=== PATIENT | female | born 1980 | race Caucasian/White ===

== ENCOUNTER 2016-05-24 07:32 | Day surgery (SDC) | payer OTHER ==
[2016-05-24 08:05] VITALS: BMI 23.0
[2016-05-24 08:38] LABS: BASOPHIL 0.7 % (0-2.0); EOSINOPHIL 2.5 % (0-4.5); MCH 30.3 pg (25.7-33.7); MCHC 33.4 g/dl (32.0-36.0); MEAN CELL VOLUME 90.9 fl (80-96); MEAN PLT VOLUME 8.6 fl (7.5-11.1); NEUTROPHILS 54.1 % (42.8-82.8); PLATELET COUNT 255 K/MM3 (134-434); RDW 13.5 % (11.6-15.6)
[2016-05-24 08:39] LABS: URINE APPEARANCE SLCLOUDY; URINE BILIRUBIN NEGATIVE (NEGATIVE); URINE BLOOD 2+ (NEGATIVE); URINE COLOR LTYELLOW; URINE GLUCOSE (UA) NEGATIVE (NEGATIVE); URINE KETONE NEGATIVE (NEGATIVE); URINE LEUK ESTERASE NEGATIVE (NEGATIVE); URINE NITRITE NEGATIVE (NEGATIVE); URINE PROTEIN NEGATIVE (NEGATIVE); URINE UROBILINOGEN NEGATIVE E.U./dl (0.2-1.0)
[2016-05-24 08:43] LABS: CALCIUM OXALATE CRYSTALS RARE /hpf (NONE SEEN); URINE HYALINE CAST 1 /lpf; URINE MUCUS RARE; URINE RBC 6 /hpf (0-3); URINE WBC 1 /hpf (3-5)
[2016-05-24] MEDS ORDERED: morphine CARPU-JECT 4 MG/1 ML DISP.SYRIN IVPUSH ONE (08:58)
[2016-05-24] MEDS ORDERED: SODIUM CHLORIDE 1,000 ML IV ONE (08:58)
--- NOTE | 2016-05-24 08:58 | PDOC ---
History of Present Illness <Kyree Coronado - Last Filed: 05/24/16 09:13> - General History Source: Patient Exam Limitations: No Limitations - History of Present Illness Initial Comments: 05/24/16 09:18 The patient is a 35-year-old woman with past medical history of who presents to the emergency department ia for further evaluation of abdominal pain. Her pain started approximately 5 days ago. No trauma/new foods/sick contacts. Her pain started as a gradual onset, located on the right lower quadrant, non-radiating, which was initially intermittent (lasting approximately 30 minutes), then subsiding for the past 5 days, but has now remained constant since last night ( with a reported 7/10 in intensity), before eating dinner. She has been evaluated by General Surgeon, Dr. Micheal Guthrie, and states she has a known right inguinal hernia. She has not yet had a bowel movements and states she feels swollen on the affected region. She reports associated symptoms of nausea, fever and chills but no vomiting. Her last menstrual period was on 05/04/2016. She denies diaphoresis, generalized weakness. She denies chest pain, shortness of breath, cough She denies nausea, diarrhea, dysuria, hematuria, urinary frequency and urgency, flank pain, vaginal discharge/vaginal bleeding Allergies: No Known Drug Allergies. No Known Food Allergies. Past Surgical History: Cataracts. Social History: Retired. She denies tobacco, ETOH and recreational drug use. Primary Care Physician: N/A <Lulu Paulino - Last Filed: 05/24/16 11:03> - General Stated Complaint: ABD PAIN Time Seen by Provider: 05/24/16 07:55 Past History - Psycho/Social/Smoking Cessation Hx Suicidal Ideation: No Smoking History: Never smoked Information on smoking cessation initiated: No <Kyree Coronado - Last Filed: 05/24/16 09:13> <Lulu Paulino - Last Filed: 05/24/16 11:03> - Past Medical History Allergies/Adverse Reactions: Allergies Allergy/AdvReac Type Severity Reaction Status Date / Time No Known Allergies Allergy Verified 05/24/16 08:05 Review of Systems - Review of Systems Constitutional: No: Chills, Fever Cardiac (ROS): No: Chest Pain ABD/GI: Yes: Constipated, Nausea. No: Vomiting : No: Burning, Hematuria All Other Systems: Reviewed and Negative <CliffKyree - Last Filed: 05/24/16 09:13> *Physical Exam - Vital Signs Last Vital Signs Temp Pulse Resp BP Pulse Ox 97.2 F L 77 18 106/47 100 05/24/16 08:00 05/24/16 08:00 05/24/16 08:00 05/24/16 08:00 05/24/16 08:00 <Kyree Coronado - Last Filed: 05/24/16 09:13> - Vital Signs Last Vital Signs Temp Pulse Resp BP Pulse Ox 97.2 F L 77 18 106/47 100 05/24/16 08:00 05/24/16 08:00 05/24/16 08:00 05/24/16 08:00 05/24/16 08:00 - Physical Exam Comments: 05/24/16 09:18 GENERAL: The patient is awake, alert, and fully oriented, in no acute distress. HEAD: Normal with no signs of trauma. EYES: Pupils equal, round and reactive to light, extraocular movements intact, sclera anicteric, conjunctiva clear with no pallor. ENT: Ears normal, nares patent, oropharynx clear without exudates. Moist mucous membranes. NECK: Normal range of motion, supple without lymphadenopathy, JVD, or masses. LUNGS: Breath sounds equal, clear to auscultation bilaterally. No wheeze/ crackles. HEART: Regular rate and rhythm, normal S1 and S2 without murmur or rub. ABDOMEN: Soft. There is some guarding beginning in the left lower abdomen with some rebound. There is also some right lower quadrant tenderness with some guarding, with exquisite tenderness at the right inguinal region where there is a palpable hernia. It is manually reducible but sponstenoustly reoccurs. No noted inguinal lymphadenopathy or rash. EXTREMITIES: Normal range of motion, no edema. No clubbing or cyanosis. No cords, erythema, or tenderness. NEUROLOGICAL: Cranial nerves II through XII grossly intact. Normal speech. PSYCH: Normal mood, normal affect. SKIN: Warm, Dry, normal turgor, no rashes or lesions noted. <Lulu Paulino - Last Filed: 05/24/16 11:03> ED Treatment Course - LABORATORY CBC & Chemistry Diagram: 05/24/16 08:20 05/24/16 08:20 - ADDITIONAL ORDERS Additional order review: Laboratory Results 05/24/16 08:20 Urine Color Ltyellow Urine Appearance Slcloudy Urine pH 6.0 Ur Specific Silver 1.016 Urine Protein Negative Urine Glucose (UA) Negative Urine Ketones Negative Urine Blood 2+ H Urine Nitrite Negative Urine Bilirubin Negative Urine Urobilinogen Negative Ur Leukocyte Esterase Negative Urine RBC 6 Urine WBC 1 Ur Epithelial Cells Rare Calcium Oxalate Crystal Rare Amorphous Urates Few Hyaline Casts 1 Urine Mucus Rare Urine HCG, Qual Negative 05/24/16 08:20 RBC 4.05 MCV 90.9 MCHC 33.4 RDW 13.5 MPV 8.6 Neutrophils % 54.1 Lymphocytes % 34.8 Monocytes % 7.9 Eosinophils % 2.5 Basophils % 0.7 <Kyree Coronado - Last Filed: 05/24/16 09:13> - LABORATORY CBC & Chemistry Diagram: 05/24/16 08:20 05/24/16 08:20 - ADDITIONAL ORDERS Additional order review: Laboratory Results 05/24/16 05/24/16 05/24/16 08:20 08:20 08:20 INR 1.10 Sodium 141 Potassium 3.6 Chloride 105 Carbon Dioxide 28 Anion Gap 8 BUN 11 Creatinine 0.5 L Creat Clearance w eGFR > 60 Random Glucose 88 Calcium 8.9 Total Bilirubin 0.4 AST 23 ALT 36 Alkaline Phosphatase 64 Total Protein 7.2 Albumin 3.9 Urine Color Ltyellow Urine Appearance Slcloudy Urine pH 6.0 Ur Specific Silver 1.016 Urine Protein Negative Urine Glucose (UA) Negative Urine Ketones Negative Urine Blood 2+ H Urine Nitrite Negative Urine Bilirubin Negative Urine Urobilinogen Negative Ur Leukocyte Esterase Negative Urine RBC 6 Urine WBC 1 Ur Epithelial Cells Rare Calcium Oxalate Crystal Rare Amorphous Urates Few Hyaline Casts 1 Urine Mucus Rare Urine HCG, Qual Negative 05/24/16 08:20 RBC 4.05 MCV 90.9 MCHC 33.4 RDW 13.5 MPV 8.6 Neutrophils % 54.1 Lymphocytes % 34.8 Monocytes % 7.9 Eosinophils % 2.5 Basophils % 0.7 - RADIOLOGY Radiograph Interpretation: 05/24/16 11:02 EXAM: RAD/ABDOMEN FLAT UPRIGHT IMPRESSION: Small bowel obstruction Imaging reveals clear lung bases, normal mediastinum, and retained stool compatible with some mild constipation but no sign of an obstruction or free air. Organomegaly or calcifications of significance are not seen. If symptoms persist, further imaging with CT may be of help. <Lulu Paulino - Last Filed: 05/24/16 11:03> Medical Decision Making - Medical Decision Making 05/24/16 08:57 A portion of this note was documented by scribe services under my direction. I have reviewed the details of the note, within reason, and agree with the documentation with the following case summary and management plan written by me. Healthy 35-year-old female with known right inguinal hernia presents with acute exacerbation of pain and swelling to the right inguinal region with nausea since last night. Exam as noted with reducible (with difficulty) right inguinal hernia that spontaneously recurs Some peritoneal findings in the lower abdomen, otherwise soft and nondistended Patient is known to Dr. Guthrie general surgery, he will see the patient and determine disposition. Suspect incarcerated inguinal hernia. Will check labs Pain control Dispo with general surgery 05/24/16 09:10 no leukocytosis, chem normal, ua negative and urine preg negative. Seen by Dr. Guthrie at bedside, will proceed to OR for repair. <Kyree Coronado - Last Filed: 05/24/16 09:13> - Medical Decision Making 05/24/16 09:19 Dr. Micheal Guthrie arrived to the ER and examined the patient. Case was discussed. <Lulu Paulino - Last Filed: 05/24/16 11:03> *DC/Admit/Observation/Transfer - Discharge Dispostion Admit: Yes <Kyree Coronado - Last Filed: 05/24/16 09:13> - Attestations Scribe Attestion: 05/24/16 09:19 Documentation prepared by Lulu Paulino, acting as medical leader for Kyree Coronado MD. <Lulu Paulino - Last Filed: 05/24/16 11:03> Diagnosis at time of Disposition: Right inguinal hernia
[2016-05-24 08:59] LABS: ALBUMIN 3.9 g/dl (3.4-5.0); ALK PHOS 64 U/L (45-117); ANION GAP 8 (8-16); BILIRUBIN,TOTAL 0.4 mg/dL (0.2-1.0); CALCIUM 8.9 mg/dL (8.5-10.1); CO2 28 mmol/L (21-32); CREATININE 0.5 mg/dL (0.55-1.02); GLUCOSE,RANDOM 88 mg/dL (74-106); SGOT/AST 23 U/L (15-37); SGPT/ALT 36 U/L (12-78); TOT PROT 7.2 g/dl (6.4-8.2)
[2016-05-24] MEDS ORDERED: ONDANSETRON 4 MG/2 ML VIAL IVPUSH ONE (08:59)
[2016-05-24 09:07] LABS: INR 1.1 (0.82-1.09); PROTHROMBIN TIME (PATIENT) 12.1 SEC (9.98-11.88)
[2016-05-24] MEDS ORDERED: ONDANSETRON 4 MG/2 ML VIAL ONE ×2 (09:10→13:24)
[2016-05-24] MEDS ORDERED: morphine CARPU-JECT 4 MG/1 ML DISP.SYRIN ONE (09:10)
[2016-05-24] MEDS ORDERED: ALBUTEROL SO4 0.083% IH SOL 2.5 MG/3 ML VIAL.NEB. NEB ONE (09:32)
--- NOTE | 2016-05-24 11:59 | HP ---
DATE OF ADMISSION: 05/24/2016 REASON FOR ADMISSION: Acutely incarcerated right inguinal hernia. BRIEF HISTORY: This is a 35-year-old female who I initially evaluated in the office for a right inguinal hernia. At that time, the patient was noted to have a clear-cut right inguinal hernia, which was ultimately reduced, but with difficulty. She was scheduled fro surgery electively after checking her work schedule. Patient this morning called the service and complained of acute pain in the right groin region with a lump that would not go away. She is not nauseous, nor has she vomited. The service had told the patient to come to the emergency room. At this present time, patient complains of having pain in the right groin region secondary to this lump that has been there. Patient states the lump does not go down. She is not nauseous, nor has she vomited. PAST MEDICAL HISTORY: No coronary artery disease, hypertension, or diabetes. PAST SURGICAL HISTORY: None. MEDICATIONS: None. ALLERGIES: None. SOCIAL HISTORY: Patient does not smoke. She does not drink. PHYSICAL EXAMINATION: Abdomen: Soft, nontender, nondistended. Patient has a mass noted in the right groin. The mass is tender on examination. It is not reducible at this time. She has no contralateral finding. The remainder of the abdominal examination is unremarkable. IMPRESSION/PLAN: Acutely incarcerated right inguinal hernia, chronically incarcerated right inguinal hernia: This is a 35-year-old female who is in acute incarceration of her known right inguinal hernia at this time. Given her symptoms, I suspect she has incarcerated fat or omentum. At this point, it is not reducible, and she is in pain, and therefore I would recommend repair of this hernia. Patient will be taken to the operating room in an urgent fashion for an open repair of an incarcerated right inguinal hernia. The indications, alternatives, and complications of the procedure were discussed. Questions have been answered. We plan to obtain written consent, as well. FE BLAKELY M.D. [id number]
[2016-05-24] MEDS ORDERED: BUPIVACAINE HCL/PF 0.5% (5MG/ML) 10 ML VIAL ONE (12:45)
[2016-05-24] MEDS ORDERED: LIDOCAINE HCL/PF 2% SDV 5ML VIAL ONE (12:45)
[2016-05-24] MEDS ORDERED: ROCURONIUM BROMIDE 50 MG/5 ML VIAL ONE ×2 (12:46→13:24)
[2016-05-24] MEDS ORDERED: PROPOFOL 20 ML ONE (12:46)
[2016-05-24] MEDS ORDERED: ceFAZolin SODIUM 1 GM VIAL IVPB ONE (12:57)
[2016-05-24] MEDS ORDERED: MIDAZOLAM HCL 2 MG/2 ML SINGLE DOSE VIAL ONE (13:01)
[2016-05-24] MEDS ORDERED: KETOROLAC TROMETHAMINE 30 MG/1 ML VIAL ONE (13:24)
[2016-05-24] MEDS ORDERED: ceFAZolin SODIUM 1 GM VIAL ONE (13:24)
[2016-05-24] MEDS ORDERED: DEXAMETHASONE SOD PHOSPHATE 4 MG/1 ML VIAL ONE (13:24)
[2016-05-24] MEDS ORDERED: NEOSTIGMINE METHYLSULFATE 0.5 MG/ML - 10 ML MDV ONE (13:41)
[2016-05-24] MEDS ORDERED: ACETAMINOPHEN 325 MG TABLET (FP) PO PRN (13:53)
[2016-05-24] MEDS ORDERED: ONDANSETRON 4 MG/2 ML VIAL IVPB PRN (13:53)
[2016-05-24] MEDS ORDERED: morphine CARPU-JECT 4 MG/1 ML DISP.SYRIN IVPB PRN (13:53)
[2016-05-24] MEDS ORDERED: oxyCODONE HCL 5 MG TABLET PO PRN ×2 (13:53→14:02)
[2016-05-24] MEDS ORDERED: ONDANSETRON 4 MG/2 ML VIAL IVPUSH PRN (14:02)
--- NOTE | 2016-05-24 17:14 | OP ---
DATE OF OPERATION: 05/24/2016 PREOPERATIVE DIAGNOSIS: Incarcerated right inguinal hernia. POSTOPERATIVE DIAGNOSIS: Incarcerated right inguinal hernia. PROCEDURE: Open repair of incarcerated right inguinal hernia. SURGEON: Micheal Guthrie MD [employer] OPERATOR: None. ANESTHESIA: Tyrese Gore MD (general). ESTIMATED BLOOD LOSS: Minimal. SPECIMEN: None. PROCEDURE: This is a 35-year-old female who presented to the emergency room with acute incarceration of a chronic right inguinal hernia. It is unreducible in the emergency room and therefore she is brought urgently to the operating room for repair. Patient identified and appropriately positioned on operating room table. After placement of general anesthesia, the abdomen and right groin prepped and draped in the usual sterile fashion with ChloraPrep. An incision in the right groin was made, deepened to subcutaneous tissue. Irvin's divided sharply, the fascia divided in the direction of its fibers through the external ring. The ilioinguinal nerve identified and retracted laterally. The remnant of round ligament was isolated at the pubic tubercle, the hernia identified. The patient had an indirect sac and a mildly attenuated floor. The indirect sac from the round ligament. The sac opened and contained omentum. The omentum was reduced back into the abdominal cavity, sac suture ligated and reduced back into the preperitoneal space. Next the internal ring was freed from the sac and subcutaneous preperitoneal fat. The ring itself was then sutured with 2-layer closure. Next, the conjoined was reapproximated to Poupart's with interrupted 0 Prolene sutures. The subcutaneous space was then irrigated, the operative field examined and noted to be hemostatic. There nerve returned to its anatomic position. The fascia of the external oblique was reapproximated with a running 3-0 Vicryl suture. Subcutaneous tissue irrigated. Irvin's reapproximated with interrupted inverted 3-0 chromic sutures and the skin closed with 4-0 subcuticular Biosyn followed by Dermabond. At conclusion of case, sponge counts correct. ATTESTATION: Brief operative note handwritten on the preprinted form. [facility] queried prior to giving any narcotics. Jose A LOOMIS [id number]
[2016-05-24] MEDS: D5-1/2NS+20 MEQ KCL - 1,000 ML IV SCH (17:51)
[2016-05-25] MEDS: D5-1/2NS+20 MEQ KCL - 1,000 ML IV SCH (01:19)
[2016-05-25] MEDS ORDERED: ENOXAPARIN NA (PORCINE) 40 MG/0.4 ML DISP.SYRIN SQ SCH (10:00)
[2016-05-25] MEDS ORDERED: PANTOPRAZOLE SODIUM 100 ML IVPB SCH (10:00)
[2016-05-25 11:20] VITALS: BP 109/58; PULSE 66; TEMP 98.2
--- NOTE | 2016-05-25 15:52 | DS ---
DATE OF ADMISSION: 05/24/2016 DATE OF DISCHARGE: 05/25/2016 ADMITTING DIAGNOSES: 1. Incarcerated right inguinal hernia. 2. Right groin pain. DISCHARGE DIAGNOSES: 1. Incarcerated right inguinal hernia. 2. Right groin pain. BRIEF HISTORY: This is a 35-year-old female who presented to the [facility] Emergency Room with a painfully incarcerated right inguinal hernia and right groin pain. She was taken for urgent surgery by Dr. Micheal Guthrie and underwent emergent open repair of an incarcerated right inguinal hernia. Please reference his operative note for further details. She is being discharged home today, May 25, 2016, tolerating diet and voiding and her pain has resolved. She is okay to shower, okay to drive. She will not lift anything more than 20 pounds. She has been given a prescription for Percocet to take as needed for pain. She will follow with Dr. Guthrie in approximately 1 to 2 weeks for a postoperative check. She will likely require 2 weeks off from work. DO ISABEL VALVERDE/[id number]
== END 2016-05-25 12:36 | disposition home or self-care (01) ==
LOC: JER 07:32 → JASUSAT 09:11 → J6S 16:57 → JASUSAT 05-25 12:36
PROVIDERS: ATTEND Surgery
PROC: 0YQ50ZZ Repair Right Inguinal Region, Open Approach (ICD-10-PCS; principal; 2016-05-24 12:00)
DX: K40.30 Unilateral inguinal hernia, with obstruction, without gangrene, not specified as recurrent (principal)
CPT/HCPCS: 36415; 74020-TC; 80053; 81003; 81015; 84703; 85025; 85610; 86850; 86900; 86901; 94760; 99285-25